=== PATIENT | female | born 1990 | race Caucasian/White ===

== ENCOUNTER 2021-05-04 17:20 | Emergency (ER) | payer OTHER ==
[~2021-05-04] VITALS: Ht 165.1 cm; Wt 92.8 kg
[2021-05-04 18:16] LABS: BASO % 1 % (0-3); EOS # 0.3 x10^3/uL (0.0-0.7); EOS % 3 % (0-3); HEMATOCRIT 41.4 % (36.0-47.0); HEMOGLOBIN 14.1 g/dL (12.0-15.5); LYMPH # 2.1 x10^3/uL (1.0-4.8); LYMPH % 22 % (24-48); MEAN CORPUSCULAR HEMOGLOBIN 31 pg (25-35); MEAN CORPUSCULAR HGB CONC 34 g/dL (31-37); MEAN CORPUSCULAR VOLUME 91 fL (79-100); MONO # 0.7 x10^3/uL (0.0-1.1); MONO % 8 % (0-9); NEUT # 6.6 x10^3uL (1.8-7.7); NEUT % 67 % (31-73); PLATELET COUNT 193 x10^3/uL (140-400); RED BLOOD COUNT 4.53 x10^6/uL (3.50-5.40); RED CELL DISTRIBUTION WIDTH 12.8 % (11.5-14.5); WHITE BLOOD COUNT 9.8 x10^3/uL (4.0-11.0)
--- NOTE | 2021-05-04 18:17 | PHYS DOC ---
Past History Past Surgical History: No Surgical History (VIBHA CH) General Adult EDM: Chief Complaint: RECTAL BLEED HPI: HPI: Patient is a 30 year old female who presents with painless rectal bleeding. Patient reports that today she had some epigastric burning sensation that was mild as well as right upper quadrant pain, both of which resolved spontaneously. Later on in the day, she noticed some drops of blood in the toilet, on her stool, and on toilet tissue. She presents today for evaluation with combination of her abdominal discomfort combined with rectal bleeding. Patient reports she has had hemorrhoids in the past, and today seems similar though with more blood than in the past. Patient denies nausea, vomiting, diarrhea, constipation or straining. (VIBHA CH) Review of Systems: Review of Systems: Constitutional: Denies fever or chills Eyes: Denies change in visual acuity HENT: Denies nasal congestion or sore throat Respiratory: Denies cough or shortness of breath Cardiovascular: Denies chest pain or edema GI: See HPI : Denies dysuria or hematuria Musculoskeletal: Denies back pain or joint pain Integument: Denies rash or other skin lesion Neurologic: Denies headache, focal weakness or sensory changes (VIBHA CH) Allergies: Allergies: Allergies Coded Allergies Type Severity Reaction Last Updated Verified No Known Drug Allergies 05/04/21 No (VIBHA CH) Physical Exam: PE: Constitutional: Well developed, well nourished, no acute distress, non-toxic a ppearance. Cardiovascular: Heart rate regular rhythm, no murmur. Lungs & Thorax: Bilateral breath sounds clear to auscultation. Abdomen: Bowel sounds normal, soft, no tenderness, no masses, no pulsatile masses. Rectal: No gross blood noted. Multiple, small external hemorrhoids appreciated. Sphincter tone intact. One internal hemorrhoid approximately 6:00 appreciated. Skin: Warm, dry, no erythema, no rash. (VIBHA CH) Current Patient Data: Labs: Laboratory Tests Test 05/04/21 17:53 05/04/21 18:01 Stool Occult Blood Positive (NEG) White Blood Count 9.8 x10^3/uL (4.0-11.0) Red Blood Count 4.53 x10^6/uL (3.50-5.40) Hemoglobin 14.1 g/dL (12.0-15.5) Hematocrit 41.4 % (36.0-47.0) Mean Corpuscular Volume 91 fL (79-100) Mean Corpuscular Hemoglobin 31 pg (25-35) Mean Corpuscular Hemoglobin Concent 34 g/dL (31-37) Red Cell Distribution Width 12.8 % (11.5-14.5) Platelet Count 193 x10^3/uL (140-400) Neutrophils (%) (Auto) 67 % (31-73) Lymphocytes (%) (Auto) 22 % (24-48) Monocytes (%) (Auto) 8 % (0-9) Eosinophils (%) (Auto) 3 % (0-3) Basophils (%) (Auto) 1 % (0-3) Neutrophils # (Auto) 6.6 x10^3uL (1.8-7.7) Lymphocytes # (Auto) 2.1 x10^3/uL (1.0-4.8) Monocytes # (Auto) 0.7 x10^3/uL (0.0-1.1) Eosinophils # (Auto) 0.3 x10^3/uL (0.0-0.7) Basophils # (Auto) 0.0 x10^3/uL (0.0-0.2) Sodium Level 139 mmol/L (136-145) Potassium Level 3.9 mmol/L (3.5-5.1) Chloride Level 104 mmol/L (98-107) Carbon Dioxide Level 28 mmol/L (21-32) Anion Gap 7 (6-14) Blood Urea Nitrogen 17 mg/dL (7-20) Creatinine 0.8 mg/dL (0.6-1.0) Estimated GFR (Cockcroft-Gault) 84.2 BUN/Creatinine Ratio 21 (6-20) Glucose Level 91 mg/dL (70-99) Calcium Level 8.7 mg/dL (8.5-10.1) Total Bilirubin 0.3 mg/dL (0.2-1.0) Aspartate Amino Transf (AST/SGOT) 21 U/L (15-37) Alanine Aminotransferase (ALT/SGPT) 30 U/L (14-59) Alkaline Phosphatase 62 U/L (46-116) Total Protein 7.7 g/dL (6.4-8.2) Albumin 4.1 g/dL (3.4-5.0) Albumin/Globulin Ratio 1.1 (1.0-1.7) Lipase 183 U/L (73-393) Vital Signs: Vital Signs Date Time Temp Pulse Resp B/P (MAP) Pulse Ox O2 Delivery O2 Flow Rate FiO2 05/04/21 18:54 89 16 148/81 (103) 100 Room Air 05/04/21 17:26 98.1 100 18 144/79 (100) 98 Room Air (VIBHA CH) Heart Score: C/O Chest Pain: No (VIBHA CH) Course & Med Decision Making: Course & Med Decision Making Pertinent Labs and Imaging studies reviewed. (See chart for details) Patient work-up is largely unremarkable. Stool is Hemoccult positive, which is explained by visible and palpable hemorrhoids. Patient was provided with a list of primary care providers in the area, as she has just moved here and has not established primary care. She did express concern about obtaining women's care as well. All of patient's care is through , so she is advised to call the primary care providers in our list to see if they accept . Other referrals should come through her PCP. Patient understands and is agreeable to discharge plan. (VIBHA CH) Dragon Disclaimer: Dragon Disclaimer: This electronic medical record was generated, in whole or in part, using a voice recognition dictation system. (VIBHA CH) Attending Co-Sign The patient was seen and interviewed as well as examined at the bedside. The chart was reviewed. The case was discussed. Agree with the plan of care. (RACHEL DIEHL DO) Departure Departure: Impression: Primary Impression: Hemorrhoids Qualified Codes: K64.9 - Unspecified hemorrhoids Additional Impressions: Hemorrhoids, external Hemorrhoids, internal Disposition: HOME / SELF CARE / HOMELESS Condition: STABLE Referrals: PCP,NO (PCP) YECENIA COLBERT MD Patient Instructions: Hemorrhoids, [id number] VIBHA CH May 04, 2021 18:17 RACHEL DIEHL DO May 04, 2021 19:21
[2021-05-04 18:32] LABS: FECAL OB PT POSITIVE (NEG)
[2021-05-04 18:33] LABS: CALCIUM 8.7 mg/dL (8.5-10.1); CREATININE 0.8 mg/dL (0.6-1.0); GFR 84.2; POTASSIUM 3.9 mmol/L (3.5-5.1)
[2021-05-04 18:38] LABS: ALBUMIN 4.1 g/dL (3.4-5.0); ALBUMIN/GLOBULIN RATIO 1.1 (1.0-1.7); TOTAL BILIRUBIN 0.3 mg/dL (0.2-1.0); TOTAL PROTEIN 7.7 g/dL (6.4-8.2)
[2021-05-04 18:54] VITALS: BP 148/81
[2021-05-04 19:10] LABS: COLOR,URINE YELLOW
[2021-05-04 19:11] LABS: BACTERIA,URINE FEW /HPF (0-FEW); BILIRUBIN,URINE NEG (NEG); CLARITY,URINE CLEAR; GLUCOSE,URINE NEG (NEG); NITRITE,URINE NEG (NEG); RBC,URINE OCC /HPF (0-2); UROBILINOGEN,URINE 0.2 mg/dL (0.2 mg/dL)
[2021-05-05 10:55] LABS: SQUAMOUS EPITHELIAL CELL,UR MOD /LPF
== END 2021-05-04 19:08 | disposition home or self-care (01) ==
LOC: ER 17:20
DX: K64.4 Residual hemorrhoidal skin tags (principal); K64.8 Other hemorrhoids
CPT/HCPCS: 36415; 80053; 81001; 82274; 83690; 85025; 99283